=== PATIENT | male | born 1950 | race Caucasian/White ===

== ENCOUNTER 2019-01-27 15:15 | Emergency (ER) | payer MEDICARE, OTHER, SELFPAY ==
--- NOTE | 2019-01-27 15:19 | NUR.NOTE ---
Nursing Note: pt has has a 4 cm bump below his right knee that hs been there for 6 weeks pt states no pain pt is here because he is visiting from the [facility] and does not have access to his PCP
[2019-01-27 15:21] VITALS: BP 164/104; PULSE 68; RESP 15; TEMP 37.1; O2SAT 99
--- NOTE | 2019-01-27 15:23 | W.ED.GENAD ---
Discharge Plan Disposition Patient Disposition: HOME Condition: Stable Discharge Details Chief Complaint: GenMedical Clinical Impression: Bursitis of right knee Primary Care Provider: Catie,Local ED Provider: Mary Jo Krishnan Home Meds and New Rx's Prescriptions: Continued amlodipine 5 mg Tablet 5 mg PO DAILY RF: 0 aspirin [Aspir-81] 81 mg Tablet,Delayed Release (Dr/Ec) 81 mg PO DAILY RF: 0 carvedilol 3.125 mg Tablet 3.125 mg PO BID RF: 0 Discharge Instructions Instructions: Knee Bursitis (ED) Additional Instructions: Rest, ice, and elevate your right knee as much as possible. Take ibuprofen 600mg every 6 hours as needed and directed for pain for the next few days. You also should limit prolonged excessive intake of ibuprofen due to risk of ulcers and gastrointestinal bleeding. Follow-up with your primary care doctor once you return to [place]. Return to any emergency department with any worsening or new concerning symptoms such as fever, pain, redness or swelling. Discharge Data Discharge Date/Time-TO BE ENTERED AT DEPARTURE: 01/27/19 16:20 Discharge Physician: Mary Jo Krishnan Medical Decision Making 60-year-old male with history of aortic stenosis and aortic valve replacement presents with an area of right knee swelling for the past 6 weeks. He has a h/o frequently kneeling on both knees while doing work. He is nontoxic. Afebrile. Blood pressure moderately hypertensive. He denies any known fever, injury or any knee pain. Right knee exam appears consistent with likely a knee bursitis or cyst. As he has no pain, evidence of cellulitis or any concern for septic joint, do not see any indication for lab work or imaging patient is agreeable. Advised that he rest, ice, elevate, alternate Tylenol and Motrin and will place an [place] wrap to his right knee. He is advised that if his symptoms change or worsen in any way including fever, redness, worsening swelling or pain, to have an evaluation by his primary care doctor or another emergency department if he is traveling. HPI General Mode of arrival: ambulatory. Date/Time Provider Initiated Documentation: 01/27/19 15:16. Limitations to Documentation: no limitations. Information obtained by: patient. HPI Narrative: Patient is a 68-year-old male with a history of aortic stenosis and aortic valve replacement presents with a nontender bump to his right knee for the past 6 weeks. He is on a road trip from [place] around the country and stopped here for evaluation. He states the lump grew in size from onset then over a 2-week. But has not changed in size over the past 4 weeks. He denies any known injury. 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 He denies any fever, weight loss, chest pain, shortness of breath, knee pain, numbness or weakness. He has not taken any medication or done anything for his symptoms. Related Data Home Medications Medication Instructions Recorded Confirmed amlodipine 5 mg PO DAILY 01/27/19 01/27/19 aspirin [Aspir-81] 81 mg PO DAILY 01/27/19 01/27/19 carvedilol 3.125 mg PO BID 01/27/19 01/27/19 Allergies Allergy/AdvReac Type Severity Reaction Status Date / Time ketorolac [From Toradol] Allergy Severe Anaphylaxsi Unverified 01/27/19 15:24 s tramadol AdvReac Mild Unverified 01/27/19 15:24 General Stated Complaint: GenMedical MIREYA: 4 Review of Systems Review of Systems ROS Unobtainable: All systems reviewed & are unremarkable except as noted in HPI and below Constitutional Constitutional: Reports as per HPI, Denies chills and Denies fever(s) Eyes Eyes: Denies blurry vision ENT Ears, Nose, Mouth, and Throat: Denies dizziness, Denies sore throat and Denies throat swelling Cardiovascular Cardiovascular: Denies chest pain and Denies dyspnea Respiratory Respiratory: Denies cough and Denies dyspnea Gastrointestinal Gastrointestinal: Denies abdominal pain, Denies diarrhea and Denies vomiting Genitourinary Genitourinary: Denies hematuria and Denies dysuria Musculoskeletal Musculoskeletal: Denies back pain and Denies numbness Integumentary/Breasts Skin/Breast: Denies lesions and Denies rash Neurologic Neurologic: Denies dizziness, Denies focal weakness and Denies numbness Allergic/Immunologic Allergic/Immunologic: Denies throat swelling [facility] Medical History Aortic stenosis (Chronic) Surgical History History of heart valve replacement (Chronic) Aortic valve 2018 Social History Smoking/Tobacco Use Status: Never Alcohol Intake: current Alcohol Intake frequency: holidays/special occasions only Alcohol type: beer Drug use: Never Substance use type: does not use Do you feel safe at home: Yes Do you feel safe in your relationship?: Yes Exam Const General: cooperative, healthy appearing and no acute distress HENMT Head: normal to inspection Mouth: oral mucosae normal Eyes General: appearance normal, both eyes and all related structures Neck Neck: normal visual inspection Resp Effort & Inspection: normal respiratory effort and able to speak in complete sentences Cardio Rate: regular rate Skin General skin exam: no rashes or lesions noted Neuro General: alert, awake, oriented x3 and moves all extremities Gait: normal gait Motor: muscle tone normal throughout Extrem Knee images: 1. An approximate 4 x 4 centimeter area of boggy mobile edema without induration, erythema, lesions or rash. Other: Normal range of motion of right knee without pain, tenderness, ligamentous instability. No right calf tenderness. No pain with range of motion at R hip, ankle or foot. Negative right Chris's test. No pain with R valgus or varus stress. Negative anterior posterior drawer test on right. Psych Appearance: grossly normal Affect: normal affect Course Vital Signs Vital signs: Vital Signs Temperature 98.8 F 01/27/19 15:21 Pulse 68 01/27/19 15:21 Respiratory Rate 15 01/27/19 15:21 Blood Pressure 164/104 H 01/27/19 15:21 Pulse Oximetry 99 01/27/19 15:21 Temperature 98.8 F 01/27/19 15:21 Temperature Source Skin 01/27/19 15:21 Pulse 68 01/27/19 15:21 Respiratory Rate 15 01/27/19 15:21 Blood Pressure 164/104 H 01/27/19 15:21 Blood Pressure Position Sitting 01/27/19 15:21 Pulse Oximetry 99 01/27/19 15:21 Oxygen Delivery Method Room Air 01/27/19 15:21 Oxygen Flow Rate 0 01/27/19 15:21 Pain Level 0 01/27/19 15:21
[2019-01-27] MEDS: Ibuprofen 600 MG TAB PO (15:44)
[2019-01-27 16:20] VITALS: BP 164/104; PULSE 68; RESP 15; TEMP 37.1; O2SAT 99
== END 2019-01-27 16:20 | disposition home or self-care (01) ==
PROVIDERS: Emergency Provider Physician Assistant
DX: M70.51 Other bursitis of knee, right knee (principal); Z95.2 Presence of prosthetic heart valve
CPT/HCPCS: 99282